=== PATIENT | male | born 1980 | race Hispanic/Latino ===

== ENCOUNTER 2018-01-03 15:30 | Emergency (ER) | payer SELFPAY ==
[2018-01-03] MEDS ORDERED: Ibuprofen 600 MG TAB ONE (16:17)
[2018-01-03] MEDS ORDERED: Adacel (T-DAP) 0.5 ML VIAL ONE (16:17)
[2018-01-03] MEDS ORDERED: HYDROcodone/Acetaminophen 5/325 mg Tablet ONE (16:17)
--- NOTE | 2018-01-03 16:37 | CT ---
CT HEAD NONCONTRAST: History: Fall. Head injury. FINDINGS: No comparison. There is no evidence of acute intracranial hemorrhage or infarct. Ventricles appear normal in size, s hape, and position. No mass effect or shift of midline structures. Visualized paranasal sinuses remai n well aerated. Skin jeniffer left frontal scalp. IMPRESSION: No acute intracranial abnormalities are demonstrated. POS: [facility]
== END 2018-01-03 16:41 | disposition home or self-care (01) ==
LOC: SCSER 15:30
DX: S01.01XA Laceration without foreign body of scalp, initial encounter (principal); V80.010A Animal-rider injured by fall from or being thrown from horse in noncollision accident, initial encounter
CPT/HCPCS: 12002; 70450; 90471; 90715

== ENCOUNTER 2018-01-14 18:17 | Emergency (ER) | payer SELFPAY | END 2018-01-14 18:56 | disposition home or self-care (01) | LOC: SCSER 18:17 | DX: S01.01XD Laceration without foreign body of scalp, subsequent encounter (principal) ==